=== PATIENT | male | born 2000 | race African-American/Black ===

== ENCOUNTER 2023-12-09 08:49 | Emergency (ER) | payer SELFPAY ==
[~2023-12-09] VITALS: Ht 185.4 cm; Wt 68.0 kg
[2023-12-09 09:06] VITALS: O2SAT 100
[2023-12-09] MEDS ORDERED: BO1 TP (09:28)
[2023-12-09 09:35] VITALS: BP 114/79; PULSE 86; RESP 17; TEMP 98.5
== END 2023-12-09 10:00 | disposition home or self-care (01) ==
LOC: ER 09:15
DX: R23.4 Changes in skin texture (principal); L29.9 Pruritus, unspecified
CPT/HCPCS: 99281

== ENCOUNTER 2023-12-25 00:53 | Emergency (ER) | payer SELFPAY ==
[~2023-12-25] VITALS: Ht 182.9 cm; Wt 68.0 kg
[~2023-12-25 00:53] MED LIST: BO1 TP
[2023-12-25 01:04] VITALS: BP 149/92; PULSE 67; RESP 18; TEMP 97.9; O2SAT 100
[2023-12-25] MEDS ORDERED: IBUP-2029 MT (02:43)
[2023-12-25] MEDS: IBUPROFEN 600MG TABLET PO ONE (03:00)
== END 2023-12-25 03:47 | disposition home or self-care (01) ==
LOC: ER 01:03
DX: S09.8XXA Other specified injuries of head, initial encounter (principal); V98.8XXA Other specified transport accidents, initial encounter; Y93.89 Activity, other specified; Y92.89 Other specified places as the place of occurrence of the external cause; Y99.8 Other external cause status
CPT/HCPCS: 99284